=== PATIENT | female | born 1985 | race Two or more races ===

== ENCOUNTER 2018-10-28 22:18 | Observation (INO) | payer MEDICAID ==
[~2018-10-28] VITALS: Ht 149.9 cm; Wt 83.9 kg
[2018-10-29] MEDS ORDERED: PNV1TABL50 MT (02:01)
== END 2018-10-29 03:10 | disposition home or self-care (01) ==
LOC: 8 EST LDRP 22:18
PROVIDERS: ADMIT Specialist; ATTEND Specialist
DX: O36.8120 Decreased fetal movements, second trimester, not applicable or unspecified (principal); O26.892 Other specified pregnancy related conditions, second trimester; R51 Headache; R10.9 Unspecified abdominal pain; Z3A.23 23 weeks gestation of pregnancy
CPT/HCPCS: 76805; 99281; G0378